=== PATIENT | female | born 1990 | race Two or more races ===

== ENCOUNTER 2020-06-03 19:54 | Emergency (ER) | payer OTHER ==
[~2020-06-03] VITALS: Ht 182.9 cm; Wt 117.9 kg
[2020-06-03] MEDS ORDERED: KETOROLAC TROMETH 60MG/2ML VIAL IM ONE (22:30)
[2020-06-03 22:52] VITALS: BP 124/61
== END 2020-06-04 00:07 | disposition home or self-care (01) ==
LOC: ER 19:55
DX: M54.42 Lumbago with sciatica, left side (principal); M54.16 Radiculopathy, lumbar region; G89.29 Other chronic pain
CPT/HCPCS: 96372; 99283; J1885